=== PATIENT | female | born 1960 | race Caucasian/White ===

== ENCOUNTER 2016-05-10 15:13 | Emergency (ER) | payer MEDICARE, MEDICAID ==
[~2016-05-10] VITALS: Ht 165.1 cm; Wt 85.0 kg
[2016-05-10 15:15] VITALS: BP 177/98; PULSE 97; RESP 12; TEMP 98; O2SAT 98
--- NOTE | 2016-05-10 15:50 | PD ---
HPI Chief Complaint: Bite or Sting Time Seen by Provider: 15:43 Travel History International Travel<30 days: No Contact w/Intl Traveler<30days: No Traveled to known affect area: No History of Present Illness HPI This is a 55-year-old female who presents for evaluation of cat bite. 2 days ago her pet cat bit her on the anterior right cotton. She has been washing the wound out but she has continued to have pain which prompted evaluation. Pain is a throbbing pain which is worse with palpation at the site of the puncture wound. No fevers or chills. Last tetanus vaccination unknown. No other complaints. PFSH Past Medical History Bipolar Disorder: Yes Social History Alcohol Use: No Tobacco Use: Yes Allergies-Medications (Allergen,Severity, Reaction): Coded Allergies: Morphine (Verified Adverse Reaction, Severe, 05/10/16) RED LINE UP ARM/STREAKING Reported Meds & Prescriptions Reported Meds & Active Scripts Active Augmentin (Amoxicillin-Clavulanate) 875-125 mg Tab 875 Mg PO BID 10 Days not for use in CrCl <30 ml/min. Review of Systems General / Constitutional: No: Fever, Chills Skin: Positive Other (redness, puncture wound, pain) Physical Exam Narrative GENERAL: Well-developed well-nourished female in no acute distress SKIN: Warm and dry. The patient has puncture wounds on the anterior right cotton. There is mild surrounding erythema. No induration or fluctuance or drainage. No proximal streaking. CARDIOVASCULAR: Regular rate and rhythm. No murmur appreciated. RESPIRATORY: No accessory muscle use. Clear to auscultation. Breath sounds equal bilaterally. GASTROINTESTINAL: Abdomen soft, non-tender, nondistended. Hepatic and splenic margins not palpable. MUSCULOSKELETAL: No obvious deformities. Skin as noted above. Data Data Last Documented VS Vital Signs Date Time Temp Pulse Resp B/P Pulse Ox O2 Delivery O2 Flow Rate FiO2 05/10/16 15:15 98.0 97 12 177/98 98 Room Air Orders Tibia/Fibula (Ap/Lat) (05/10/16 ) Tetanus/Diphtheria Tox Adult (Tetanus/Di (05/10/16 16:00) Amoxicil-Clavulanate (Augmentin) (05/10/16 16:00) MDM Medical Decision Making Medical Screen Exam Complete: Yes Emergency Medical Condition: Yes Medical Record Reviewed: Yes Interpretation(s) Tibia-fibula x-ray reveals no acute abnormalities Differential Diagnosis Cat bite, cellulitis, puncture wound, retained foreign body Narrative Course 55-year-old female with pain after her pet cat bit her on the anterior right cotton 2 days ago. Examination reveals mild cellulitis, puncture wounds. She is nontoxic in appearance and we'll try to treat this patient hasn't outpatient. She was warned that there is the potential for worsening infection despite oral antibiotic use and if symptoms worsen that she should return immediately to the emergency room. She verbalized understanding. Tetanus status updated. Tibia fibula x-ray reveals no acute abnormalities. She is stable for discharge. Diagnosis Primary Impression: Cat bite Qualified Code: W55.01XA - Cat bite, initial encounter Additional Impression: Cellulitis Qualified Code: L03.113 - Cellulitis of right upper extremity Additional Instructions: Medication as prescribed. Wash the wounds daily with soap and water and apply antibiotic cream. If you develop any new or worsening symptoms return to the emergency room. Med/Other Pt SpecificInfo: Prescription(s) given Scripts Amoxicillin-Clavulanate (Augmentin)875-125 mg [id number] Mg PO BID 10 Days Ref 0 not for use in CrCl <30 ml/min. Prov:Taylor Rothman MD 05/10/16 Disposition: 01 DISCHARGE HOME Condition: Stable Fredo Lal May 10, 2016 15:50
[2016-05-10] MEDS ORDERED: AMOXICILLIN/CLAVULANATE K 875 MG TAB PO ONE (16:00)
[2016-05-10] MEDS ORDERED: TETANUS/DIPHTHERIA TOXOID ADULT 0.5 ML VIAL IM ONE (16:00)
[2016-05-10] MEDS ORDERED: AUGM875T PO (16:05)
--- NOTE | 2016-05-10 16:14 | RADRPT ---
EXAM DATE/TIME: 05/10/2016 15:57 [facility] COMPARISON: No previous studies available for comparison. INDICATIONS : Right tibia laceration from cat bite. MEDICAL HISTORY : None. SURGICAL HISTORY : None. ENCOUNTER: Initial ACUITY: 2 days PAIN SCORE: 8/10 LOCATION: Right anterior tibia. FINDINGS: Two view examination of the right tibia demonstrates no evidence of fracture or dislocation. Bony mi neralization is normal. The soft tissue structures are intact. CONCLUSION: Unremarkable examination of the right tibia. Dennis Barker Jr., MD on May 10, 2016 at 16:06 Board Certified Radiologist. This report was verified electronically.
[2016-07-26] MEDS ORDERED: BACL10TA PO (09:31)
[2016-07-26] MEDS ORDERED: LOSA25TA PO (09:31)
[2016-07-26] MEDS ORDERED: HYDR50CA PO (09:31)
[2016-07-26] MEDS ORDERED: VITATAB43 PO (09:31)
[2016-07-26] MEDS ORDERED: VITA500030 CHEW (09:31)
[2016-07-26] MEDS ORDERED: CARB200T PO (09:31)
[2016-07-26] MEDS ORDERED: MELO7.5T4 PO (09:31)
[2016-07-26] MEDS ORDERED: ROSU40 PO (10:11)
[2016-07-27] MEDS ORDERED: ROSU40 PO (08:42)
[2016-08-09] MEDS ORDERED: ATOR40TA16 PO (10:59)
== END 2016-05-10 17:07 | disposition home or self-care (01) ==
LOC: NEPB 15:13
DX: S81.851A Open bite, right lower leg, initial encounter (principal); W55.01XA Bitten by cat, initial encounter; Z23 Encounter for immunization
CPT/HCPCS: 73590; 90471; 90714